=== PATIENT | male | born 1985 | race Two or more races ===

== ENCOUNTER 2017-02-22 08:00 | Emergency (ER) | payer OTHER ==
[2017-02-22] MEDS ORDERED: METHYLPREDNISOLONE INJ 125 MG/2 ML SDV IV ONE (08:18)
[2017-02-22] MEDS ORDERED: DIPHENHYDRAMINE HCL 50 MG/ML VIAL IM ONE (08:18)
[2017-02-22] MEDS ORDERED: FAMOTIDINE INJ/PF 20 MG/2 ML SDV IV ONE (08:20)
--- NOTE | 2017-02-22 08:20 | ER Document Report ---
ED Allergic Reaction - General Mode of Arrival: Ambulatory - Transported from assisted Information source: Patient - HPI Patient complains to provider of: Allergic Reaction Onset: Just prior to arrival Onset/Duration: Sudden, Persistent Swelling: Face Associated symptoms: None Similar symptoms previously: No - General Chief Complaint: Allergic Reaction Stated Complaint: POSSIBLE ALLERGIC REACTION Time Seen by Provider: 02/22/17 08:09 Notes: Patient is a 32-year-old male presenting to the emergency department concerned of a possible allergic reaction onset just prior to arrival to the emergency department. Patient states he was laying down, blinked, and felt his eyes swelling. Patient states that it happened suddenly, and worsened over a period of 10 minutes. Patient denies any new foods, and the plain clothes police officer accompanying the patient states that they have been using the same detergent at that assisted for the past 5 years. Patient denies any nausea, vomiting, diarrhea, hives, or swelling in any other area of his body. Patient reports that the swelling around his eyes itches a little bit. Patient's only past medical history is hypertension. (GALE POWELL) - Related Data Allergies/Adverse Reactions: No Known Allergies Allergy (Unverified 02/22/17 08:41) Past Medical History - General Information source: Patient - Social History Smoking Status: Unknown if Ever Smoked Family History: Reviewed & Not Pertinent - Past Medical History Cardiac Medical History: Reports: Hx Hypertension Review of Systems - Review of Systems Constitutional: No symptoms reported EENT: No symptoms reported Cardiovascular: No symptoms reported Respiratory: No symptoms reported Gastrointestinal: No symptoms reported. denies: Diarrhea, Nausea, Vomiting Genitourinary: No symptoms reported Male Genitourinary: No symptoms reported Musculoskeletal: No symptoms reported Skin: No symptoms reported, Other - Swelling to the inner corner of the eye and bridge of nose. denies: Rash Hematologic/Lymphatic: No symptoms reported Neurological/Psychological: No symptoms reported -: Yes All other systems reviewed and negative Physical Exam - Vital signs Interpretation: Normal - General General appearance: Alert - HEENT Head: Normocephalic, Atraumatic Eyes: Other - Swelling to the inner aspect of bilateral eyes and bridge of nose Pupils: PERRL Mouth/Lips: Other - No tongue, lip, or uvular swelling - Respiratory Respiratory status: No respiratory distress - No trismus, stridor or drooling Chest status: Nontender Breath sounds: Normal Chest palpation: Normal - Cardiovascular Rhythm: Regular Heart sounds: Normal auscultation Murmur: No - Abdominal Inspection: Normal Distension: No distension Bowel sounds: Normal Tenderness: Nontender Organomegaly: No organomegaly - Back Back: Normal, Nontender - Extremities General upper extremity: Normal inspection, Nontender. No: Edema General lower extremity: Normal inspection, Nontender. No: Edema - Neurological Neuro grossly intact: Yes Cognition: Normal Orientation: AAOx4 Cisco Coma Scale Eye Opening: Spontaneous Mak Coma Scale Verbal: Oriented Mka Coma Scale Motor: Obeys Commands Mak Coma Scale Total: 15 Speech: Normal - Psychological Associated symptoms: Normal affect, Normal mood - Skin Skin Temperature: Warm Skin Moisture: Dry Skin Color: Normal Discharge - Discharge Clinical Impression: Allergic reaction Condition: Stable Disposition: HOME, SELF-CARE Additional Instructions: Allergic reaction You have a local allergic reaction, called contact dermatitis. This an allergy to something in contact with your skin. Poison alida, jewelry, soaps, perfumes, and chemicals are common causes. Typically, an itchy rash develops a few days after the exposure. If the reaction is severe, blisters may develop. Two to three weeks may be required for healing. Generally, treatment consists of: (1) a thorough washing with soap to remove the offending substance, (2) application of a cortisone cream, and (3) antihistamines for itching. If the reaction is particularly severe, further measures may be required. These can include soaking in epsom salts or Cong's solution, and oral cortisone medications. Call the doctor if the rash worsens despite treatment, or if signs of infection occur such as spreading redness, red streaks, swollen glands, swelling , or fever. Prescriptions: Prednisone [Deltasone 20 mg Tablet] 3 tab PO DAILY 5 Days Referrals: [facility] [Provider Group] (in 2-3 days return to er sooner for increasing worsening or new symptoms) Scribe Attestation: 02/22/17 10:29 I personally performed the services described in the documentation reviewed the documentation recorded by my scribe in my presence and it accurately and completely records my words and actions (FERNANDO FALLON) Scribe Documentation - Scribe Written by Crista:: Crista Rojas, 02/22/[id number] acting as scribe for :: Karlo
[2017-02-22] MEDS ORDERED: AMLODIPINE BESYLATE 10 MG TABLET PO ONE (08:49)
[2017-02-22 10:37] VITALS: BP 146/103
== END 2017-02-22 10:37 | disposition home or self-care (01) ==
LOC: ER 08:00
DX: T78.40XA Allergy, unspecified, initial encounter (principal); R22.9 Localized swelling, mass and lump, unspecified; X58.XXXA Exposure to other specified factors, initial encounter; Y92.199 Unspecified place in other specified residential institution as the place of occurrence of the external cause
CPT/HCPCS: 99283; 96372; 96374; 96375; J1200; J2930; S0028